=== PATIENT | female | born 1960 | race Hispanic/Latino ===

== ENCOUNTER 2018-12-10 09:58 | Emergency (ER) | payer BC ==
[~2018-12-10] VITALS: Ht 165.1 cm; Wt 90.7 kg
--- OUTSIDE RECORDS SUMMARY | 2018-12-10 10:01 | XMS REPORT | Summary of Care ---
Author Author [facility] Organization [facility] Address Unknown Phone Unavailable Encounter HQ Brad(FIN) [id number] Date(s): 09/22/17 - 09/22/17 [facility] [address] [place] [address]- Encounter Diagnosis Epigastric pain (Final) - 09/26/17 Calculus of gallbladder without cholecystitis without obstruction (Final) - Other specified diseases of biliary tract (Final) - Acquired absence of other specified parts of digestive tract (Final) - Discharge Disposition: Home or Self Care Attending Physician: Chitra Wang MD Referring Physician: Chitra Wang MD Vital Signs No data available for this section Problem List Condition Effective Dates Status Health Status Informant DM (diabetes Resolved mellitus)(Confirmed) HTN Resolved (hypertension)(Confi rmed) Allergies, Adverse Reactions, Alerts Substance Reaction Severity Status codeine Active Medications No data available for this section Results No data available for this section Immunizations No data available for this section Procedures Procedure Date Related Diagnosis Body Site Status Cholecystectomy Completed Social History Social History Type Response Smoking Status Never smoker; Previous treatment: None; Ready to change: No; Concerns about tobacco use in household: No; Exposure to Tobacco Smoke None; Cigarette Smoking Last 365 Days No; Reg Smoking Cessation Counseling No entered on: 09/15/17 Assessment and Plan No data available for this section
--- OUTSIDE RECORDS SUMMARY | 2018-12-10 10:01 | XMS REPORT | Summary of Care ---
Author Author [facility] Organization [facility] Address Unknown Phone Unavailable Encounter HQ Marianna_delbert(FIN) [id number] Date(s): 05/18/18 - 05/18/18 [facility] [address] [place] [address]- Encounter Diagnosis Encounter for screening mammogram for malignant neoplasm of breast (Final) - 07/26/18 Discharge Disposition: Home or Self Care Attending Physician: Darren Melton MD Referring Physician: Darren Melton MD Vital Signs No data available for [...] Related Diagnosis Body Site Status Cholecystectomy Completed Magnetic resonance cholangiopancreatography Completed (MRCP) with contrast Social History Social History Type Response Smoking Status Never smoker; Previous treatment: None; Ready to change: No; Concerns about tobacco use in household: No; Exposure to Tobacco Smoke None; Cigarette Smoking Last 365 Days No; Reg Smoking Cessation Counseling No entered on: 01/12/18 Assessment and Plan No data available for this section
--- OUTSIDE RECORDS SUMMARY | 2018-12-10 10:01 | XMS REPORT | Clinical Summary ---
Author Author [facility] Address Unknown Phone Unavailable Care Team Providers Care Alterations Supervisor Name Role Phone Sharpless PCP Allergies Comments Active Allergy Reactions Severity Noted Date Delayed awakening Codeine 10/11/2016 Medications End Date Status Medication Sig Dispensed Refills Start Date Active metFORMIN (GLUCOPHAGE) Take 1,000 mg 0 1000 MG tablet by mouth 2 (two) times daily with breakfast and dinner. Active atenolol (TENORMIN) 25 MG Take 25 mg by 0 tablet mouth daily. Active Problems Not on file Social History Date Tobacco Use Types Packs/Day Years Used Never Smoker Alcohol Use Drinks/Week oz/Week Comments No Sex Assigned at Date Recorded Not on file Industry Job Start Date Occupation Not on file Not on file Not on file Travel End Travel History Travel Start No recent travel history available. Last Filed Vital Signs Not on file Plan of Treatment Not on file Results Not on fileafter 12/09/2017 Insurance Payer Benefit Subscriber ID Type Phone Address Plan / Group [facility] H[facility]/POS CARE POS SELECT CHOICE
--- OUTSIDE RECORDS SUMMARY | 2018-12-10 10:01 | XMS REPORT | Summary of Care ---
Author Author [facility] Organization [facility] Address Unknown Phone Unavailable Encounter HQ Marianna_delbert(AAYUSH) [id number] Date(s): 03/08/17 - 03/08/17 [facility] [address] [place] [address]- Discharge Disposition: Home or Self Care Attending Physician: Darren Melton MD Referring Physician: Darren Melton MD Vital Signs No data available for this section Problem List Condition Effective Dates Status Health Status Informant DM (diabetes Resolved mellitus)(Confirmed) HTN Resolved (hypertension)(Confi rmed) Allergies, Adverse Reactions, Alerts Substance Reaction Severity Status NKDA Active Medications No data available for this section Results No data available for this section Immunizations No data available for this section Procedures Procedure Date Related Diagnosis Body Site Cholecystectomy Social History Social History Type Response Smoking Status Never smoker; Previous treatment: None; Ready to change: No; Concerns about tobacco use in household: No; Exposure to Tobacco Smoke None; Cigarette Smoking Last 365 Days No; Reg Smoking Cessation Counseling No Assessment and Plan No data available for this section
--- OUTSIDE RECORDS SUMMARY | 2018-12-10 10:01 | XMS REPORT | Summary of Care ---
Author Author [facility] Organization [facility] Address Unknown Phone Unavailable Encounter GWEN Salinas(AAYUSH) [id number] Date(s): 10/08/16 - 10/09/16 [facility] [address] [place] [address]- [phone] Discharge Diagnosis: Acute cystitis with positive culture Discharge Disposition: Home or Self Care Attending Physician: Owen Deleon MD Vital Signs 1 2 3 Most recent to oldest [Reference Range]: 165.1 cm (10/09/16 12:14 AM) Height 98 DegF (10/09/16 5:09 AM) 98.2 DegF (10/09/16 3:53 AM) 98 DegF (10/09/16 1:19 AM) Temperature Oral [96.4-99.1 DegF] 131/52 mmHg (10/09/16 5:09 AM) 136/61 mmHg (10/09/16 3:53 AM) 125/68 mmHg (10/09/16 1:19 AM) Blood Pressure [90-140/60-90 mmHg] 18 BRMIN (10/09/16 5:09 AM) 18 BRMIN (10/09/16 3:53 AM) 18 BRMIN (10/09/16 1:19 AM) Respiratory Rate [14-20 BRMIN] 63 bpm (10/09/16 5:09 AM) 60 bpm (10/09/16 3:53 AM) 65 bpm (10/09/16 1:19 AM) Peripheral Pulse Rate [60-100 bpm] 100 kg (10/09/16 12:14 AM) Weight 36.69 m2 (10/09/16 12:14 AM) Body Mass Index Problem List Condition Effective Dates Status Health Status Informant DM (diabetes Resolved mellitus)(Confirmed) HTN Resolved (hypertension)(Confi rmed) Allergies, Adverse Reactions, Alerts Substance Reaction Severity Status NKDA Active Medications Saline Flush 0.9% 10 mL, Route: IVP, Drug Form: INJ, Dosing Weight 100, kg, PRN, PRN Line Flush, S tart date: 10/09/16 1:18:00 [employer], Duration: 30 day, Stop date: 11/08/16 2:17:00 C DT Notes: (Same as: BD Posiflush) Start Date: 10/09/16 Stop Date: 10/09/16 Status: Discontinued Sodium Chloride 0.9% (Bolus) IV 1,000 mL, 2,000 ml/hr, Infuse Over: 30 minutes, Route: IV, ONCE, Priority: STAT, Dosing Weight 100 kg, Start date: 10/09/16 1:18:00 [employer], Duration: 1 doses or ti mes, Stop date: 10/09/16 1:18:00 [employer] Start Date: 10/09/16 Stop Date: 10/09/16 Status: Completed Zofran 4 mg, Route: IVP, Drug form: INJ, ONCE, Dosing Weight 100, kg, Priority: STAT, S tart date: 10/09/16 3:46:00 [employer], Stop date: 10/09/16 3:46:00 [employer] Start Date: 10/09/16 Stop Date: 10/09/16 Status: Completed Results ELECTROLYTES Most recent to 1 oldest [Reference Range]: Sodium Lvl [135-145 137 mEq/L mEq/L] (10/09/16 1:44 AM) Potassium Lvl 3.3 mEq/L [3.5-5.1 mEq/L] *LOW* (10/09/16 1:44 AM) Chloride Lvl [95-109 95 mEq/L mEq/L] (10/09/16 1:44 AM) CO2 [24-32 mEq/L] 31 mEq/L (10/09/16 1:44 AM) AGAP [10.0-20.0 14.3 mEq/L mEq/L] (10/09/16 1:44 AM) CHEM PANEL Most recent to 1 oldest [Reference Range]: Creatinine Lvl 1.10 mg/dL [0.50-1.40 mg/dL] (10/09/16 1:44 AM) eGFR 56 mL/min/1.73m2 1 *NA* (10/09/16 1:44 AM) BUN [7-22 mg/dL] 11 mg/dL (10/09/16 1:44 AM) Glucose Lvl [70-99 179 mg/dL mg/dL] *HI* (10/09/16 1:44 AM) Calcium Lvl 8.9 mg/dL [8.5-10.5 mg/dL] (10/09/16 1:44 AM) Amylase Lvl [25-115 16 unit/L unit/L] *LOW* (10/09/16 1:44 AM) Lipase Lvl [73-393 49 unit/L unit/L] *LOW* (10/09/16 1:44 AM) 1Result Comment: The eGFR is calculated using the CKD-EPI formula. In most young, healthy individuals the eGFR will be >90 mL/min/1.73m2. The eGFR declines with age. An eGFR of 60-89 may be normal in some populations, particularly the elderly, for whom the CKD-EPI formula has not been extensively validated. Use of the eGFR is not recommended in the following populations: Individuals with unstable creatinine concentrations, including patients and those with serious co-morbid conditions. Patients with extremes in muscle mass or diet. The data above are obtained from the National Kidney Disease Education Program ( NKDEP) which additionally recommends that when the eGFR is used in patients with extremes of body mass index for purposes of drug dosing, the eGFR should be mul tiplied by the estimated BMI. URINE AND STOOL Most recent to 1 oldest [Reference Range]: UA Turbidity [Clear] Slight *ABN* (10/09/16 1:44 AM) UA Color [Yellow] Yellow *NA* (10/09/16 1:44 AM) UA pH [5.0-8.0] 5.0 (10/09/16 1:44 AM) UA Spec Grav 1.018 [<=1.030] (10/09/16 1:44 AM) UA Glucose [Negative 500 mg/dL mg/dL] *ABN* (10/09/16 1:44 AM) UA Blood [Negative] Negative (10/09/16 1:44 AM) UA Ketones [Negative Negative mg/dL mg/dL] *NA* (10/09/16 1:44 AM) UA Protein [Negative Negative mg/dL mg/dL] (10/09/16 1:44 AM) UA Urobilinogen <=1.0 mg/dL [0.1-1.0 mg/dL] *NA* (10/09/16 1:44 AM) UA Bili [Negative] Negative *NA* (10/09/16 1:44 AM) UA Leuk Est Negative [Negative] (10/09/16 1:44 AM) UA Nitrite Negative [Negative] (10/09/16 1:44 AM) UA WBC [0-5 /HPF] 8 /HPF *HI* (10/09/16 1:44 AM) UA RBC [0-2 /HPF] <1 /HPF (10/09/16 1:44 AM) UA Bacteria [None Occasional /HPF Seen /HPF] *NA* (10/09/16 1:44 AM) UA Sq Epi [Few /LPF] Occasional /LPF *NA* (10/09/16 1:44 AM) UA Hyal Cast [0-2 9 /LPF /LPF] *HI* (10/09/16 1:44 AM) UA Mucus [None Seen Few /LPF /LPF] *NA* (10/09/16 1:44 AM) HEMATOLOGY Most recent to 1 oldest [Reference Range]: WBC [3.7-10.4 K/CMM] 9.4 K/CMM (10/09/16 1:44 AM) RBC [4.20-5.40 4.04 M/CMM M/CMM] *LOW* (10/09/16 1:44 AM) Hgb [12.0-16.0 g/dL] 11.8 g/dL *LOW* (10/09/16 1:44 AM) Hct [36.0-48.0 %] 34.8 % *LOW* (10/09/16 1:44 AM) MCV [80.0-98.0 fL] 86.1 fL (10/09/16 1:44 AM) MCH [27.0-31.0 pg] 29.2 pg (10/09/16 1:44 AM) MCHC [32.0-36.0 33.9 g/dL g/dL] (10/09/16 1:44 AM) RDW [11.5-14.5 %] 14.3 % (10/09/16 1:44 AM) Platelet [133-450 356 K/CMM K/CMM] (10/09/16 1:44 AM) MPV [7.4-10.4 fL] 8.9 fL (10/09/16 1:44 AM) Segs [45.0-75.0 %] 62.0 % (10/09/16 1:44 AM) Lymphocytes 29.3 % [20.0-40.0 %] (10/09/16 1:44 AM) Monocytes [2.0-12.0 7.5 % %] (10/09/16 1:44 AM) Eosinophils [0.0-4.0 0.8 % %] (10/09/16 1:44 AM) Basophils [0.0-1.0 0.4 % %] (10/09/16 1:44 AM) Segs-Bands # 5.8 K/CMM [1.5-8.1 K/CMM] (10/09/16 1:44 AM) Lymphocytes # 2.8 K/CMM [1.0-5.5 K/CMM] (10/09/16 1:44 AM) Monocytes # [0.0-0.8 0.7 K/CMM K/CMM] (10/09/16 1:44 AM) Eosinophils # 0.1 K/CMM [0.0-0.5 K/CMM] (10/09/16 1:44 AM) Immunizations No data available for this section [...]
--- OUTSIDE RECORDS SUMMARY | 2018-12-10 10:01 | XMS REPORT | Continuity of Care Document ---
Author Author [facility] Interface Address Unknown Phone Unavailable Problems Problem Status Onset Date Classification Date Reported Comments Source L UPPER BACK NECK PAIN Active 09/12/2018 [facility] Encounter for screening mammogram for malignant neoplasm of breast 07/27/2018 12/05/2018 [facility] ROUTINE Active 05/03/2018 [facility] Acute UTI 01/12/2018 01/15/2018 [facility] Epigastric abdominal pain 01/12/2018 01/15/2018 [facility] ABD, HEAD, NECK PAIN Active 01/12/2018 [facility] Epigastric pain 09/27/2017 12/29/2017 [facility] DX: K80.20=CALCULUS OF GALLBLADDER WITHO Active 09/20/2017 [facility] DIABETIC KETOACIDOSIS, JULIO CESAR Active 09/15/2017 [facility] ABD PAIN Active 09/15/2017 [facility] SCREENING NO PAIN,NO LUMPS,NO IMPLANT Active 02/10/2017 [facility] Discharge Diagnosis: Acute cystitis with positive culture 10/09/2016 10/12/2016 [facility] VAGINAL BLEEDING Active 10/08/2016 [facility] Discharge Diagnosis: Right ovarian cyst 10/02/2016 10/05/2016 [facility] Discharge Diagnosis: Elevated blood pressure 10/02/2016 10/05/2016 [facility] Discharge Diagnosis: Abdominal pain, acute, right lower quadrant 10/02/2016 10/05/2016 [facility] Discharge Diagnosis: Renovascular hypertension 10/02/2016 10/05/2016 [facility] Discharge Diagnosis: Acute pyelonephritis 10/02/2016 10/05/2016 [facility] SIDE PAIN Active 10/02/2016 [facility] DM (<span [id number]</span>) Resolved Problem 12/05/2018 [facility] HTN (<span [id number]">Confirmed</span>) Resolved Problem 12/05/2018 [facility] Calculus of gallbladder without cholecystitis without obstruction 12/29/2017 [facility] Other specified diseases of biliary tract 12/29/2017 [facility] Acquired absence of other specified parts of digestive tract 12/29/2017 [facility] OTH DIABETES MELLITUS WITH KETOACIDOSIS Active [facility] ACUTE KIDNEY FAILURE, UNSPECIFIED Active [facility] Medications Medication Details Route Status Patient Instructions Ordering Provider Order Date Source Nitrofurantoin 100 MG Oral Capsule [Macrobid] 100 mg=1 cap, PO, BID, X 7 day, # 14 cap, 0 Refill(s) Active 01/13/2018 [facility] Esomeprazole 20 MG Enteric Coated Capsule [Nexium] 20 mg=1 cap, PO, Daily, # 30 cap, 0 Refill(s) Active 01/13/2018 [facility] Sodium Chloride 0.9% (Bolus) IV 1,000 mL, 1000 ml/hr, Infuse Over: 1 hr, Route: IV, 1,000, Drug form: INJ, ONCE, Priority: STAT, Dosing Weight 98.182 kg, Start date: 01/12/18 19:02:00 CDT, Stop date: 01/12/18 19:02:00 CDT Inactive 01/13/2018 [facility] GI cocktail 30 mL, Route: PO, Drug Form: SUSP, Dosing Weight 98.182, kg, ONCE, STAT, Start date: 01/12/18 19:02:00 CDT, Stop date: 01/12/18 19:02:00 CDTNotes: G.I. Cocktail=antacid with simethicone 22.5 mL - lidocaine viscous 7.5 mL Inactive 01/13/2018 [facility] Acetaminophen 325 MG / Hydrocodone Bitartrate 5 MG Oral Tablet 1 tab, Route: PO, Drug Form: TAB, Dosing Weight 98.182, kg, ONCE, STAT, Start date: 01/12/18 19:02:00 CDT, Stop date: 01/12/18 19:02:00 CDTNotes: (Same as: Eldon 325/5) Do not exceed 4gm/day of acetaminophen. Inactive 01/13/2018 [facility] Zofran 4 mg, Route: IVP, Drug form: INJ, ONCE, Dosing Weight 100, kg, Priority: STAT, Start date: 10/09/16 3:46:00 PARAGLIDING INSTRUCTOR, Stop date: 10/09/16 3:46:00 PARAGLIDING INSTRUCTOR Inactive 10/09/2016 [facility] Sodium Chloride 0.154 MEQ/ML Injectable Solution 1,000 mL, 2,000 ml/hr, Infuse Over: 30 minutes, Route: IV, ONCE, Priority: STAT, Dosing Weight 100 kg, Start date: 10/09/16 1:18:00 PARAGLIDING INSTRUCTOR, Duration: 1 doses or times, Stop date: 10/09/16 1:18:00 PARAGLIDING INSTRUCTOR Inactive 10/09/2016 [facility] Saline Flush 0.9% 10 mL, Route: IVP, Drug Form: INJ, Dosing Weight 100, kg, PRN, PRN Line Flush, Start date: 10/09/16 1:18:00 PARAGLIDING INSTRUCTOR, Duration: 30 day, Stop date: 11/08/16 2:17:00 CDTNotes: (Same as: BD Posiflush) Inactive 10/09/2016 [facility] Cephalexin 500 MG Oral Capsule [Keflex] 500 mg=1 cap, PO, TID, X 10 day, # 30 cap, 0 Refill(s) Active 10/02/2016 [facility] Ondansetron 8 MG Disintegrating Tablet [Zofran] 8 mg=1 tab, PO, TID, PRN Nausea and Vomiting, Dissolve tab under tongue, X 4 day, # 30 tab, 0 Refill(s) Active 10/02/2016 [facility] Zofran 4 mg, 2 mL, Route: IVP, Drug form: INJ, ONCE, Dosing Weight 102.273, kg, Priority: STAT, Start date: 10/02/16 6:59:00 PARAGLIDING INSTRUCTOR, Stop date: 10/02/16 6:59:00 CSTNotes: (Same as: Zofran) MEDICATION WASTE Product Size: 4 mg Product Wasted: ___ mg Inactive 10/02/2016 [facility] Morphine 4 mg, 1 mL, Route: IV, Drug form: SOLN, ONCE, Dosing Weight 102.273, kg, Priority: STAT, Start date: 10/02/16 6:59:00 PARAGLIDING INSTRUCTOR, Stop date: 10/02/16 6:59:00 CSTNotes: (Same as:MORPhine Sulfate) Inactive 10/02/2016 [facility] Rocephin 1 gm, Route: IVPB, ONCE, Dosing Weight 102.273, kg, Priority: STAT, Start date: 10/02/16 6:42:00 PARAGLIDING INSTRUCTOR, Stop date: 10/02/16 6:42:00 CSTNotes: (Same As: Rocephin). Use with 100 mL NS and infuse over 30 mi n MEDICATION WASTE Product Size: 1000 mg Product Wasted: ___ mg Inactive 10/02/2016 [facility] sodium chloride 0.9% INJ 250 mL 250 mL, Rate: [employer] Appellate [employer] Clerk for use with blood product administration., Dosing Weight 102.273, kg, Route: IV, Total Volume: 250, Priority: Routine, Start Date: 10/02/16 4:02:00 PARAGLIDING INSTRUCTOR, Duration: 1 day, Stop date: 10/03/16 4:01:00 PARAGLIDING INSTRUCTOR, Replace Every: 24 hr Inactive 10/02/2016 [facility] Morphine 8 mg, Route: IVP, ONCE, Dosing Weight 102.273, kg, Priority: STAT, Start date: 10/02/16 4:02:00 PARAGLIDING INSTRUCTOR, Stop date: 10/02/16 4:02:00 PARAGLIDING INSTRUCTOR Inactive 10/02/2016 [facility] Ondansetron 4 mg, Route: IVP, ONCE, Dosing Weight 102.273, kg, Priority: STAT, Start date: 10/02/16 4:02:00 PARAGLIDING INSTRUCTOR, Stop date: 10/02/16 4:02:00 PARAGLIDING INSTRUCTOR Inactive 10/02/2016 [facility] Sodium Chloride 0.154 MEQ/ML Injectable Solution 1,000 mL, Rate: 125 ml/hr, Infuse over: 8 hr, Route: IV, Dosing Weight 102.273 kg, Total Volume: 1,000, Start date: 10/02/16 4:02:00 PARAGLIDING INSTRUCTOR, Duration: 30 day, Stop date: 11/01/16 4:01:00 PARAGLIDING INSTRUCTOR Inactive 10/02/2016 [facility] Saline Flush 0.9% 10 mL, Route: IVP, Drug Form: INJ, Dosing Weight 102.273, kg, PRN, PRN Line Flush, Start date: 10/02/16 4:02:00 PARAGLIDING INSTRUCTOR, Duration: 30 day, Stop date: 11/01/16 4:01:00 CSTNotes: (Same as: BD Posiflush) Inactive 10/02/2016 [facility] Allergies, Adverse Reactions, Alerts Substance Category Reaction Severity Reaction type Status Date Reported Comments Source codeine Assertion Drug allergy Active [facility] Immunizations Immunization Date Given Site Status Last Updated Comments Source Results Order Name Results Value Reference Range Date Interpretation Comments Source Spine cervical 2 or 3 view DX Spine cervical 2 or 3 view DX Cervical spine 4 views 09/12/2018 HISTORY: Neck pain FINDINGS: There is straightening of the cervical spine. Vertebral body heights are maintained. Disc space narrowing and osteophytes are present at C5-C6. Transforaminal view of the dens is within normal limits. Alignment is preserved. No prevertebral soft tissue swelling is noted. Carotid calcifications are present. IMPRESSION: 1. No fracture, malalignment, or soft tissue swelling. 2. Moderate degenerative disc disease at C5-C6. 3. Straightening of cervical spine which may be related to patient positioning or muscle spasm. SL: KRISHAN 09/12/2018 - - Read by: Pollo Jones MD Dictated Date/time: 09/12/18 21:41 Electronically Signed by: Pollo Jones MD 09/12/18 21:43 FINAL REPORT [facility] Breast Mammo Scrn MARY w juan incl CAD MA Breast Mammo Scrn MARY w juan incl CAD MA BILATERAL DIGITAL SCREENING MAMMOGRAM 3D/2D WITH CAD: 05/18/2018 CLINICAL: /Routine. Current study was evaluated with a Computer Aided Detection (CAD) system. COMPARISON:Comparison is made to exams dated: 03/08/2017 mammogram - [facility], 05/13/2016 mammogram, 03/27/2015 mammogram, 05/04/2012 mammogram, 04/24/2008 mammogram, and 10/22/2005 mammogram - [facility]. TECHNIQUE: Digital Breast Tomosynthesis was performed and utilized for Interpretation. [employer] Version 1.3 was utilized for computer aided detection. FINDINGS: There are scattered fibroglandular densities in both breasts. There is a benign nodule in the left breast. There also are benign calcifications in both breasts. No significant masses, calcifications, or other findings are seen in either breast. There has been no significant interval change. IMPRESSION: BENIGN RECOMMENDATION:There is no mammographic evidence of malignancy. A 1 year screening mammogram is recommended.(05/19/2019) This exam was interpreted at [id number] for [facility] Breast [facility]. Silvano cho/mj:05/18/2018 11:08:37 Chemical Production Engineer(s): Jovita Buck [facility] letter sent: BI-RADS 1/2 Mammogram BI-RADS: 2 Benign 05/18/2018 - - Read by: Silvano Hussein MD Dictated Date/time: 05/18/18 11:08 Electronically Signed by: Silvano Hussein MD 05/18/18 11:08 FINAL REPORT [facility] URINE AND STOOL UA RBC 0-2 /HPF 0 - 2 01/12/2018 [facility] URINE AND STOOL UA Bacteria Few /HPF None Seen /HPF 01/12/2018 [facility] URINE AND STOOL UA WBC 6-10 /HPF 0 - 5 01/12/2018 [facility] URINE AND STOOL UA Blood Small *ABN* (01/12/18 5:36 PM) Negative 01/12/2018 [facility] URINE AND STOOL UA Urobilinogen 0.2 EU/dL 0.1 - 1.0 01/12/2018 [facility] URINE AND STOOL UA Protein 30 mg/dL Negative mg/dL 01/12/2018 [facility] URINE AND STOOL UA pH 5.5 5.0 - 8.0 01/12/2018 [facility] URINE AND STOOL UA Glucose Negative (01/12/18 5:36 PM) Negative 01/12/2018 [facility] URINE AND STOOL UA Ketones Negative *NA* (01/12/18 5:36 PM) Negative 01/12/2018 [facility] URINE AND STOOL UA Nitrite Negative (01/12/18 5:36 PM) Negative 01/12/2018 [facility] URINE AND STOOL UA Leuk Est Moderate *ABN* (01/12/18 5:36 PM) Negative 01/12/2018 [facility] URINE AND STOOL UA Sq Epi Moderate /LPF Few /LPF 01/12/2018 [facility] URINE AND STOOL UA Turbidity Slight Cloudy (01/12/18 5:36 PM) Clear 01/12/2018 [facility] URINE AND STOOL UA Spec Grav >=1.030 *ABN* (01/12/18 5:36 PM) <=1.030 01/12/2018 [facility] URINE AND STOOL UA Bili Negative *NA* (01/12/18 5:36 PM) Negative 01/12/2018 [facility] URINE AND STOOL UA Color Yellow *NA* (01/12/18 5:36 PM) Yellow 01/12/2018 [facility] URINE CHEM U Preg Negative (01/12/18 5:36 PM) Negative 01/12/2018 [facility] CARDIAC ENZYMES Troponin-I null 0.00 - 0.40 01/12/2018 [facility] CHEM PANEL Lipase Lvl 101 unit/L 73 - 393 01/12/2018 [facility] CHEM PANEL eGFR 38 mL/min/1.73m2 01/12/2018 Result Comment: The eGFR is calculated using the [...] from the National Kidney Disease Education Program (NKDEP) which additionally recommends that when the eGFR is used in patients with extremes of body mass index for purposes of drug dosing, the eGFR should be multiplied by the estimated BMI. [facility] CHEM PANEL ALT 67 unit/L 0 - 65 01/12/2018 [facility] CHEM PANEL AST 48 unit/L 0 - 37 01/12/2018 [facility] CHEM PANEL Alk Phos 101 unit/L 39 - 136 01/12/2018 [facility] CHEM PANEL Total Protein 8.0 g/dL 6.4 - 8.4 01/12/2018 [facility] CHEM PANEL Albumin Lvl 4.2 g/dL 3.5 - 5.0 01/12/2018 [facility] CHEM PANEL Calcium Lvl 9.5 mg/dL 8.5 - 10.5 01/12/2018 [facility] CHEM PANEL Bili Total 0.5 mg/dL 0.2 - 1.3 01/12/2018 [facility] CHEM PANEL Potassium Lvl 3.6 meq/L 3.5 - 5.1 01/12/2018 [facility] CHEM PANEL Sodium Lvl 144 meq/L 135 - 145 01/12/2018 [facility] CHEM PANEL BUN 23 mg/dL 7 - 22 01/12/2018 [facility] CHEM PANEL Creatinine Lvl 1.49 mg/dL 0.50 - 1.40 01/12/2018 [facility] CHEM PANEL CO2 28 meq/L 24 - 32 01/12/2018 [facility] CHEM PANEL Chloride Lvl 106 meq/L 95 - 109 01/12/2018 [facility] CHEM PANEL Glucose Lvl 116 mg/dL 70 - 99 01/12/2018 [facility] CHEM PANEL A/G Ratio 1.1 0.7 - 1.6 01/12/2018 [facility] CHEM PANEL Globulin 3.8 g/dL 2.7 - 4.2 01/12/2018 [facility] CHEM PANEL B/C Ratio 15 6 - 25 01/12/2018 [facility] CHEM PANEL AGAP 13.6 meq/L 10.0 - 20.0 01/12/2018 [facility] MPV 9.3 fL 7.4 - 10.4 01/12/2018 [facility] Platelet 356 K/CMM 133 - 450 01/12/2018 [facility] MCHC 33.9 g/dL 32.0 - 36.0 01/12/2018 [facility] RDW 13.1 % 11.5 - 14.5 01/12/2018 [facility] MCV 90.7 fL 80.0 - 98.0 01/12/2018 [facility] MCH 30.7 pg 27.0 - 31.0 01/12/2018 [facility] Hct 36.4 % 36.0 - 48.0 01/12/2018 [facility] Hgb 12.3 g/dL 12.0 - 16.0 01/12/2018 [facility] RBC 4.02 M/CMM 4.20 - 5.40 01/12/2018 [facility] WBC 9.2 K/CMM 3.7 - 10.4 01/12/2018 [facility] Lymphocytes # 2.4 K/CMM 1.0 - 5.5 01/12/2018 [facility] Segs-Bands # 6.2 K/CMM 1.5 - 8.1 01/12/2018 [facility] Eosinophils # 0.1 K/CMM 0.0 - 0.5 01/12/2018 [facility] Monocytes # 0.5 K/CMM 0.0 - 0.8 01/12/2018 [facility] HEMATOLOGY Segs 67.2 % 45.0 - 75.0 01/12/2018 [facility] HEMATOLOGY Basophils 0.3 % 0.0 - 1.0 01/12/2018 [facility] HEMATOLOGY Eosinophils 1.1 % 0.0 - 4.0 01/12/2018 [facility] Monocytes 5.6 % 2.0 - 12.0 01/12/2018 [facility] Lymphocytes 25.8 % 20.0 - 40.0 01/12/2018 [facility] Abdomen wo contrast MRI Abdomen wo contrast MRI MRCP: HISTORY: Epigastric pain, history of cholecystectomy. TECHNIQUE: Axial and coronal T2 tomographic images were done through the biliary tree followed by thick slab MRCP images. FINDINGS: The gallbladder is not visualized consistent with cholecystectomy. There is a short cystic duct remnant measuring 3-4 mm in diameter. There is mild ectasia of the biliary tree. The common hepatic duct measures 7 mm in diameter. The common bile duct measures 6 mm in diameter. No strictures or filling defects are demonstrated. The pancreatic duct is normal caliber measuring 2-3 mm in diameter. There is no evidence of bleeding or strictures. There are no significant anatomical variants. The liver, spleen, pancreas, kidneys and adrenal glands show no significant abnormalities. IMPRESSION: 1. Post cholecystectomy. 2. No significant biliary dilatation or choledocholithiasis. 3. Normal pancreatic duct. DLAWRENCE- 09/22/2017 - - Read by: Mariano Gutiérrez MD Dictated Date/time: 09/23/17 11:04 Electronically Signed by: Mariano Gutiérrez MD 09/23/17 11:11 FINAL REPORT [facility] Abdomen complete US Abdomen complete US Exam: Abdomen complete US Clinical Indication: - Epigastric pain. Comparison: CT abdomen and pelvis 10/09/2016. TECHNIQUE: Grayscale and limited color sonographic evaluation of the abdomen was performed with standard technique. FINDINGS: LIVER: The visualized liver shows normal contour. There is normal liver size, based on sonography. Diffuse heterogeneous increased echotexture of the liver parenchyma with posterior acoustic attenuation is consistent with fatty infiltration. The portal vein region appears unremarkable. BILE DUCTS: The common bile duct is mildly prominent measuring 8 mm most likely related to cholecystectomy status. The distal common bile duct is not well seen. GALLBLADDER: The gallbladder is surgically absent. PANCREAS: The visualized pancreas appears unremarkable. SPLEEN: The spleen is unremarkable and measures 9.9 cm. KIDNEYS: The right kidney measures 12.7 cm. The left kidney measures 13.1 cm. There is normal renal contour and morphology, with normal parenchymal echotexture. Anechoic cyst is present in the superior pole of the left kidney measuring 1.1 x 1.1 x 1.3 cm. There is no hydronephrosis. AORTA AND INFERIOR VENA CAVA: The visualized abdominal aorta and inferior vena cava appear unremarkable. ASCITES: There is no significant abdominal ascites. IMPRESSION: 1. Mild prominence of the common bile duct is most likely related to cholecystectomy status. Suggest clinical correlation for biliary obstruction. If there is further clinical concern, may consider evaluation with MRCP and/or ERCP. 2. Hepatic steatosis. 3. Left renal cyst. SL: [id number] 09/15/2017 - - Read by: Xavier Dodson MD Dictated Date/time: 09/15/17 17:50 Electronically Signed by: Xavier Dodson MD 09/15/17 17:54 FINAL REPORT [facility] Chest 1view DX Chest 1view DX Clinical Indication: Cough for 2 weeks; Comparison: None FINDINGS: AP chest radiographs shows normal lung volumes without interstitial or airspace opacities, pleural effusions or pneumothorax. The heart size and pulmonary vasculature are normal. The trachea is midline. There are no clinically significant osseous abnormalities noted. IMPRESSION: No chest radiographic evidence of acute cardiopulmonary disease. SL: [id number] 09/15/2017 - - Read by: Cornelio Sanches MD Dictated Date/time: 09/15/17 08:11 Electronically Signed by: Cornelio Sanches MD 09/15/17 08:11 FINAL REPORT [facility] Breast Mammo Scrn MARY w juan incl CAD MA Breast Mammo Scrn MARY w juan incl CAD MA - BREAST MAMMO SCRN MARY W JUAN INCL CAD MA BILATERAL DIGITAL SCREENING MAMMOGRAM 3D/2D WITH CAD: 03/08/2017 CLINICAL: /Routine. 2D digital mammographic images and 3D digital tomosynthesis images were obtained in the CC and MLO projections. Current study was evaluated with a Computer Aided Detection (CAD) system. Comparison is made to exams dated: 05/04/2012 mammogram, 04/24/2008 mammogram, 10/22/2005 mammogram - [facility], 05/13/2016 mammogram and 03/27/2015 mammogram. There are scattered fibroglandular densities in both breasts. There is a benign calcification in the right breast. There also are benign calcifications in the left breast. Additionally there is a benign nodule with coarse calcifications in the left breast at 9 o'clock in the anterior depth that is not significantly changed. No significant masses, calcifications, or other findings are seen in either breast. There has been no significant interval change. IMPRESSION: BENIGN There is no mammographic evidence of malignancy. A 1 year screening mammogram is recommended. Silvano cho/penrad:03/24/2017 08:45:44 Chemical Production Engineer: Jovita Buck, [facility] This exam was dictated and interpreted by [id number] for [facility]. letter sent: Normal exam Mammogram BI-RADS: 2 Benign 03/08/2017 - - Read by: Silvano Hussein MD Dictated Date/time: 03/24/17 08:45 Electronically Signed by: Silvano Hussein MD 03/24/17 08:45 FINAL REPORT [facility] CHEM PANEL Lipase Lvl 49 unit/L 73 - 393 10/09/2016 [facility] CHEM PANEL Amylase Lvl 16 unit/L 25 - 115 10/09/2016 [facility] ELECTROLYTES AGAP 14.3 meq/L 10.0 - 20.0 10/09/2016 [facility] ELECTROLYTES Glucose Lvl 179 mg/dL 70 - 99 10/09/2016 [facility] ELECTROLYTES BUN 11 mg/dL 7 - 22 10/09/2016 [facility] ELECTROLYTES Creatinine Lvl 1.10 mg/dL 0.50 - 1.40 10/09/2016 [facility] ELECTROLYTES Sodium Lvl 137 meq/L 135 - 145 10/09/2016 [facility] ELECTROLYTES Potassium Lvl 3.3 meq/L 3.5 - 5.1 10/09/2016 [facility] ELECTROLYTES Chloride Lvl 95 meq/L 95 - 109 10/09/2016 [facility] ELECTROLYTES Calcium Lvl 8.9 mg/dL 8.5 - 10.5 10/09/2016 [facility] ELECTROLYTES CO2 31 meq/L 24 - 32 10/09/2016 [facility] ELECTROLYTES eGFR 56 mL/min/1.73m2 10/09/2016 Result Comment: The eGFR is calculated using the [...] from the National Kidney Disease Education Program (NKDEP) which additionally recommends that when the eGFR is used in patients with extremes of body mass index for purposes of drug dosing, the eGFR should be multiplied by the estimated BMI. [facility] HEMATOLOGY Monocytes # 0.7 K/CMM 0.0 - 0.8 10/09/2016 [facility] HEMATOLOGY Eosinophils # 0.1 K/CMM 0.0 - 0.5 10/09/2016 [facility] Lymphocytes 29.3 % 20.0 - 40.0 10/09/2016 [facility] HEMATOLOGY Segs 62.0 % 45.0 - 75.0 10/09/2016 [facility] HEMATOLOGY Eosinophils 0.8 % 0.0 - 4.0 10/09/2016 [facility] HEMATOLOGY Monocytes 7.5 % 2.0 - 12.0 10/09/2016 [facility] HEMATOLOGY Basophils 0.4 % 0.0 - 1.0 10/09/2016 [facility] Lymphocytes # 2.8 K/CMM 1.0 - 5.5 10/09/2016 [facility] Segs-Bands # 5.8 K/CMM 1.5 - 8.1 10/09/2016 [facility] RBC 4.04 M/CMM 4.20 - 5.40 10/09/2016 [facility] Hct 34.8 % 36.0 - 48.0 10/09/2016 [facility] Hgb 11.8 g/dL 12.0 - 16.0 10/09/2016 [facility] MCV 86.1 fL 80.0 - 98.0 10/09/2016 [facility] MCHC 33.9 g/dL 32.0 - 36.0 10/09/2016 [facility] MCH 29.2 pg 27.0 - 31.0 10/09/2016 [facility] MPV 8.9 fL 7.4 - 10.4 10/09/2016 [facility] Platelet 356 K/CMM 133 - 450 10/09/2016 [facility] RDW 14.3 % 11.5 - 14.5 10/09/2016 [facility] WBC 9.4 K/CMM 3.7 - 10.4 10/09/2016 [facility] URINE AND STOOL UA Mucus Few /LPF None Seen /LPF 10/09/2016 [facility] URINE AND STOOL UA RBC null 0 - 2 10/09/2016 [facility] URINE AND STOOL UA WBC 8 /HPF 0 - 5 10/09/2016 [facility] URINE AND STOOL UA Bacteria Occasional /HPF None Seen /HPF 10/09/2016 [facility] URINE AND STOOL UA Sq Epi Occasional /LPF Few /LPF 10/09/2016 [facility] URINE AND STOOL UA Leuk Est Negative (10/09/16 1:44 AM) Negative 10/09/2016 [facility] URINE AND STOOL UA Urobilinogen <=1.0 mg/dL 0.1 - 1.0 10/09/2016 [facility] URINE AND STOOL UA Hyal Cast 9 /LPF 0 - 2 10/09/2016 [facility] URINE AND STOOL UA Bili Negative *NA* (10/09/16 1:44 AM) Negative 10/09/2016 [facility] URINE AND STOOL UA Glucose 500 mg/dL Negative mg/dL 10/09/2016 [facility] URINE AND STOOL UA Ketones Negative mg/dL Negative mg/dL 10/09/2016 [facility] URINE AND STOOL UA pH 5.0 5.0 - 8.0 10/09/2016 [facility] URINE AND STOOL UA Turbidity Slight *ABN* (10/09/16 1:44 AM) Clear 10/09/2016 [facility] URINE AND STOOL UA Spec Grav 1.018 <=1.030 10/09/2016 [facility] URINE AND STOOL UA Protein Negative mg/dL Negative mg/dL 10/09/2016 [facility] URINE AND STOOL UA Color Yellow *NA* (10/09/16 1:44 AM) Yellow 10/09/2016 [facility] URINE AND STOOL UA Blood Negative (10/09/16 1:44 AM) Negative 10/09/2016 [facility] URINE AND STOOL UA Nitrite Negative (10/09/16 1:44 AM) Negative 10/09/2016 [facility] ED Abdomen/Pelvis IV contrast only CT ED Abdomen/Pelvis IV contrast only CT EXAM: CT abdomen and pelvis HISTORY: Hematuria, abdominal pain COMPARISON: CT 10/02/2016 TECHNIQUE: Axial images of the abdomen and pelvis with sagittal and coronal reformats. IV contrast given. DLP: [id number] FINDINGS: Resolving wall thickening and enhancement of the renal pelvis and ureters bilaterally. Mild-moderate renal scarring. Bladder is unremarkable. Cholecystectomy. Mild fatty change of the liver. Fatty atrophy of the pancreas. The spleen, adrenals are unremarkable. Bowel pattern is unremarkable. Normal appendix. Stable 3 cm cyst right ovary. No bulky adenopathy or free fluid. Degenerative disc disease L4-L5. IMPRESSION: 1. No acute finding. 2. Resolving urinary tract infection. 3. Stable 3 cm cyst right ovary. Nonemergent, follow-up transvaginal pelvic ultrasound can be obtained. SL: TVU-PC 10/09/2016 - - Read by: zEra Rios MD Dictated Date/time: 10/09/16 04:29 Electronically Signed by: Ezra Rios MD 10/09/16 04:36 FINAL REPORT [facility] BLOOD [facility] RESULTS Antibody Scrn Negative (10/02/16 4:18 AM) 10/02/2016 [facility] BLOOD BANK RESULTS ABO/Rh O POS 10/02/2016 [facility] CARDIAC ENZYMES Total CK 75 unit/L 12 - 191 10/02/2016 [facility] CHEM PANEL Amylase Lvl 26 unit/L 25 - 115 10/02/2016 [facility] CHEM PANEL Lipase Lvl 70 unit/L 73 - 393 10/02/2016 [facility] CHEM PANEL eGFR 65 mL/min/1.73m2 10/02/2016 Result Comment: The eGFR is calculated using the [...] from the National Kidney Disease Education Program (NKDEP) which additionally recommends that when the eGFR is used in patients with extremes of body mass index for purposes of drug dosing, the eGFR should be multiplied by the estimated BMI. [facility] CHEM PANEL Chloride Lvl 99 meq/L 95 - 109 10/02/2016 [facility] CHEM PANEL CO2 28 meq/L 24 - 32 10/02/2016 [facility] CHEM PANEL Calcium Lvl 8.8 mg/dL 8.5 - 10.5 10/02/2016 [facility] CHEM PANEL Total Protein 7.6 g/dL 6.4 - 8.4 10/02/2016 [facility] CHEM PANEL Albumin Lvl 3.5 g/dL 3.5 - 5.0 10/02/2016 [facility] CHEM PANEL AST 14 unit/L 0 - 37 10/02/2016 [facility] CHEM PANEL ALT 40 unit/L 0 - 65 10/02/2016 [facility] CHEM PANEL Alk Phos 128 unit/L 39 - 136 10/02/2016 [facility] CHEM PANEL Bili Total 0.3 mg/dL 0.2 - 1.3 10/02/2016 [facility] CHEM PANEL Glucose Lvl 221 mg/dL 70 - 99 10/02/2016 [facility] CHEM PANEL BUN 14 mg/dL 7 - 22 10/02/2016 [facility] CHEM PANEL Creatinine Lvl 0.97 mg/dL 0.50 - 1.40 10/02/2016 [facility] CHEM PANEL Sodium Lvl 138 meq/L 135 - 145 10/02/2016 [facility] CHEM PANEL Potassium Lvl 3.4 meq/L 3.5 - 5.1 10/02/2016 [facility] CHEM PANEL AGAP 14.4 meq/L 10.0 - 20.0 10/02/2016 [facility] CHEM PANEL B/C Ratio 14 6 - 25 10/02/2016 [facility] CHEM PANEL Globulin 4.1 g/dL 2.7 - 4.2 10/02/2016 [facility] CHEM PANEL A/G Ratio 0.9 0.7 - 1.6 10/02/2016 [facility] ENDOCRINOLOGY S Preg Negative *NA* (10/02/16 4:18 AM) Negative 10/02/2016 [facility] HEMATOLOGY Basophils # 0.1 K/CMM 0.0 - 0.2 10/02/2016 [facility] HEMATOLOGY Monocytes # 1.0 K/CMM 0.0 - 0.8 10/02/2016 [facility] HEMATOLOGY Monocytes 6.9 % 2.0 - 12.0 10/02/2016 [facility] HEMATOLOGY Lymphocytes 19.6 % 20.0 - 40.0 10/02/2016 [facility] HEMATOLOGY Segs 72.4 % 45.0 - 75.0 10/02/2016 [facility] HEMATOLOGY Segs-Bands # 10.1 K/CMM 1.5 - 8.1 10/02/2016 [facility] HEMATOLOGY Basophils 0.9 % 0.0 - 1.0 10/02/2016 [facility] HEMATOLOGY Eosinophils 0.2 % 0.0 - 4.0 10/02/2016 [facility] HEMATOLOGY Lymphocytes # 2.7 K/CMM 1.0 - 5.5 10/02/2016 [facility] HEMATOLOGY PT 12.9 s 12.0 - 14.7 10/02/2016 [facility] HEMATOLOGY INR 0.95 0.85 - 1.17 10/02/2016 [facility] HEMATOLOGY RDW 14.0 % 11.5 - 14.5 10/02/2016 [facility] HEMATOLOGY MCHC 33.5 g/dL 32.0 - 36.0 10/02/2016 [facility] HEMATOLOGY MCH 28.6 pg 27.0 - 31.0 10/02/2016 [facility] HEMATOLOGY MCV 85.5 fL 80.0 - 98.0 10/02/2016 [facility] HEMATOLOGY MPV 9.7 fL 7.4 - 10.4 10/02/2016 [facility] HEMATOLOGY Platelet 373 K/CMM 133 - 450 10/02/2016 [facility] HEMATOLOGY Hct 33.2 % 36.0 - 48.0 10/02/2016 [facility] HEMATOLOGY Hgb 11.1 g/dL 12.0 - 16.0 10/02/2016 [facility] HEMATOLOGY RBC 3.88 M/CMM 4.20 - 5.40 10/02/2016 [facility] HEMATOLOGY WBC 13.9 K/CMM 3.7 - 10.4 10/02/2016 [facility] URINE AND STOOL UA Urobilinogen <=1.0 mg/dL 0.1 - 1.0 10/02/2016 [facility] URINE AND STOOL UA Color Ltyellow 10/02/2016 [facility] URINE AND STOOL UA WBC 78 /HPF 0 - 5 10/02/2016 [facility] URINE AND STOOL UA pH 6.0 5.0 - 8.0 10/02/2016 [facility] URINE AND STOOL UA Glucose 500 mg/dL Negative mg/dL 10/02/2016 [facility] URINE AND STOOL UA Protein 100 mg/dL Negative mg/dL 10/02/2016 [facility] URINE AND STOOL UA Ketones Trace mg/dL Negative mg/dL 10/02/2016 [facility] URINE AND STOOL UA Bili Negative *NA* (10/02/16 4:18 AM) Negative 10/02/2016 [facility] URINE AND STOOL UA Bacteria Occasional /HPF None Seen /HPF 10/02/2016 [facility] URINE AND STOOL UA RBC 9 /HPF 0 - 2 10/02/2016 [facility] URINE AND STOOL UA Blood Negative (10/02/16 4:18 AM) Negative 10/02/2016 [facility] URINE AND STOOL UA Leuk Est Trace *ABN* (10/02/16 4:18 AM) Negative 10/02/2016 [facility] URINE AND STOOL UA Nitrite Negative (10/02/16 4:18 AM) Negative 10/02/2016 [facility] URINE AND STOOL UA Sq Epi Occasional /LPF Few /LPF 10/02/2016 [facility] URINE AND STOOL UA Spec Grav 1.020 <=1.030 10/02/2016 [facility] URINE AND STOOL UA Turbidity Slight *ABN* (10/02/16 4:18 AM) Clear 10/02/2016 [facility] ED Abdomen/Pelvis IV contrast only CT ED Abdomen/Pelvis IV contrast only CT CT ABDOMEN AND PELVIS WITH CONTRAST DATED to 2016. CLINICAL INDICATION: Acute abdominal pain. Bilateral flank pain. COMPARISON: None. TECHNIQUE: A CT of the abdomen and pelvis was performed using helical images from the thoracic outlet through the pubic symphysis after the intravenous administration of 100cc Omnipaque 300. The study was ordered without bowel contrast. Sagittal and coronal reconstructions were performed. Delayed postcontrast images were obtained. CT Radiation Dose: ZVR=[id number] mGy-cm FINDINGS: SOLID ORGANS: Abnormal bilateral renal pelvic and ureteral wall thickening and enhancement is identified with associated edema/inflammation in the periureteric fat. There is no CT evidence of acute renal collecting system obstruction or calcified renal collecting system stone. The kidneys are normal in size and contour and appear to demonstrate homogeneous nephrographic enhancement. No acute CT abnormalities of the liver, spleen, pancreas or adrenal glands are identified. BILIARY: The patient is status post cholecystectomy. No significant biliary ductal dilatation is identified. BOWEL: Bowel assessment is limited by the absence of bowel contrast. There is no CT evidence of acute obstruction, appendicitis or diverticulitis. PERITONEUM: No free intraperitoneal air or significant free intraperitoneal fluid. RETROPERITONEUM: The abdominal aorta is normal in caliber. No retroperitoneal mass or adenopathy. PELVIS: An approximately 3.4 cm right ovarian cyst is identified. The left ovary/adnexa are unremarkable. The bladder appears within normal limits. LOWER CHEST: The lung bases appear clear of acute disease. ADDITIONAL COMMENTS: None. IMPRESSION: 1. Abnormal bilateral renal pelvic and ureteral wall thickening and enhancement with edema/inflammation in the periureteric fat. This finding is most compatible with acute urinary tract infection. Recent passage of bilateral renal collecting system stones is felt to be a less likely consideration. SL:131 10/02/2016 - - Read by: Reddy Bernabe MD Dictated Date/time: 10/02/16 06:31 Electronically Signed by: Reddy Bernabe MD 10/02/16 06:38 FINAL REPORT [facility] Vital Signs Vital Sign Value Date Comments Source Temperature Oral (F) 98 F 01/13/2018 [facility] Systolic (mm Hg) 137 01/13/2018 [facility] Diastolic (mm Hg) 58 01/13/2018 [facility] Respitory Rate 18 01/13/2018 [facility] Heart Rate 18 01/13/2018 [facility] Systolic (mm Hg) 116 01/13/2018 [facility] Diastolic (mm Hg) 61 01/13/2018 [facility] Respitory Rate 12 01/13/2018 [facility] Respitory Rate 17 01/12/2018 [facility] Systolic (mm Hg) 132 01/12/2018 [facility] Diastolic (mm Hg) 59 01/12/2018 [facility] Heart Rate 72 01/12/2018 [facility] Weight 98.182 01/12/2018 [facility] BMI Calculated 36.02 01/12/2018 [facility] Height 165.1 cm 01/12/2018 [facility] Temperature Oral (F) 97.9 F 01/12/2018 [facility] Heart Rate 76 01/12/2018 [facility] Systolic (mm Hg) 131 10/09/2016 [facility] Diastolic (mm Hg) 52 10/09/2016 [facility] Temperature Oral (F) 98 F 10/09/2016 [facility] Respitory Rate 18 10/09/2016 [facility] Heart Rate 63 10/09/2016 [facility] Heart Rate 60 10/09/2016 [facility] Systolic (mm Hg) 136 10/09/2016 [facility] Diastolic (mm Hg) 61 10/09/2016 [facility] Respitory Rate 18 10/09/2016 [facility] Temperature Oral (F) 98.2 F 10/09/2016 [facility] Respitory Rate 18 10/09/2016 [facility] Systolic (mm Hg) 125 10/09/2016 [facility] Diastolic (mm Hg) 68 10/09/2016 [facility] Temperature Oral (F) 98 F 10/09/2016 [facility] Heart Rate 65 10/09/2016 [facility] Weight 100 10/09/2016 [facility] Height 165.1 cm 10/09/2016 [facility] BMI Calculated 36.69 10/09/2016 [facility] Respitory Rate 18 10/02/2016 [facility] Systolic (mm Hg) 134 10/02/2016 [facility] Diastolic (mm Hg) 67 10/02/2016 [facility] Heart Rate 72 10/02/2016 [facility] Temperature Oral (F) 97.9 F 10/02/2016 [facility] Respitory Rate 17 10/02/2016 [facility] Heart Rate 70 10/02/2016 [facility] Systolic (mm Hg) 135 10/02/2016 [facility] Diastolic (mm Hg) 61 10/02/2016 [facility] Heart Rate 68 10/02/2016 [facility] Respitory Rate 16 10/02/2016 [facility] Systolic (mm Hg) 140 10/02/2016 [facility] Diastolic (mm Hg) 63 10/02/2016 [facility] Weight 102.273 10/02/2016 [facility] Height 165.1 cm 10/02/2016 [facility] BMI Calculated 37.52 10/02/2016 [facility] Temperature Oral (F) 98.3 F 10/02/2016 [facility] Encounters Location Location Details Encounter Type Encounter Number Reason For Visit Attending Provider ADM Date DC Date Status Source [facility] Emergency [id number] Wyatt Suhchichi 10/02/2016 10/02/2016 [facility] Emergency [id number] Fabriziotoanchioma Deleon 10/09/2016 10/09/2016 [facility] [id number] [facility] 03/08/2017 03/09/2017 [facility] Outpatient [id number] Chitra Wang 09/22/2017 09/23/2017 [facility] Emergency [id number] Robby Elliott 01/12/2018 01/13/2018 [facility] Outpatient [id number] Wigberto [place] 05/18/2018 05/19/2018 [facility] Procedures Procedure Code Date Perfomer Comments Source Cholecystectomy [id number] [facility] Magnetic resonance cholangiopancreatography (MRCP) with contrast [id number] [facility]
--- OUTSIDE RECORDS SUMMARY | 2018-12-10 10:01 | XMS REPORT | Summary of Care ---
Author Author [facility] Organization [facility] Address Unknown Phone Unavailable Encounter HQ Brad(FIN) [id number] Date(s): 01/12/18 - 01/12/18 [facility] [id number] [place] [address]- Encounter Diagnosis Acute UTI (Discharge Diagnosis) - 01/12/18 Epigastric abdominal pain (Discharge Diagnosis) - 01/12/18 Discharge Disposition: Home or Self Care Attending Physician: Robby Elliott DO Vital Signs 1 2 3 Most recent to oldest [Reference Range]: 165.1 cm (01/12/18 5:00 PM) Height 98 DegF (01/12/18 8:12 PM) 97.9 DegF (01/12/18 5:00 PM) Temperature Oral [96.4-99.1 DegF] 137/58 mmHg (01/12/18 8:12 PM) 116/61 mmHg (01/12/18 7:19 PM) 132/59 mmHg (01/12/18 6:54 PM) Blood Pressure [90-140/60-90 mmHg] 18 BRMIN (01/12/18 8:12 PM) 12 BRMIN *LOW* (01/12/18 7:19 PM) 17 BRMIN (01/12/18 6:54 PM) Respiratory Rate [14-20 BRMIN] 18 bpm *LOW* (01/12/18 7:19 PM) 72 bpm (01/12/18 6:54 PM) 76 bpm (01/12/18 5:00 PM) Peripheral Pulse Rate [60-100 bpm] 98.182 kg (01/12/18 5:00 PM) Weight 36.02 m2 (01/12/18 5:00 PM) Body Mass Index Problem List Condition Effective Dates Status Health Status Informant DM (diabetes Resolved mellitus)(Confirmed) HTN Resolved (hypertension)(Confi rmed) Allergies, Adverse Reactions, Alerts Substance Reaction Severity Status codeine Active Medications acetaminophen-hydrocodone 325 mg-5 mg oral tablet 1 tab, Route: PO, Drug Form: TAB, Dosing Weight 98.182, kg, ONCE, STAT, Start da te: 01/12/18 19:02:00 CDT, Stop date: 01/12/18 19:02:00 CDT Notes: (Same as: [place] 325/5) Do not exceed 4gm/day of acetaminophen. Start Date: 01/12/18 Stop Date: 01/12/18 Status: Completed GI cocktail 30 mL, Route: PO, Drug Form: SUSP, Dosing Weight 98.182, kg, ONCE, STAT, Start d ate: 01/12/18 19:02:00 CDT, Stop date: 01/12/18 19:02:00 CDT Notes: G.I. Cocktail=antacid with simethicone 22.5 mL - lidocaine viscous 7.5 mL Start Date: 01/12/18 Stop Date: 01/12/18 Status: Completed Macrobid 100 mg oral capsule 100 mg=1 cap, PO, BID, X 7 day, # 14 cap, 0 Refill(s) Start Date: 01/12/18 Stop Date: 01/19/18 Status: Ordered NexIUM 20 mg oral delayed release capsule 20 mg=1 cap, PO, Daily, # 30 cap, 0 Refill(s) Start Date: 01/12/18 Status: Ordered Sodium Chloride 0.9% (Bolus) IV 1,000 mL, 1000 ml/hr, Infuse Over: 1 hr, Route: IV, 1,000, Drug form: INJ, ONCE, Priority: STAT, Dosing Weight 98.182 kg, Start date: 01/12/18 19:02:00 CDT, Stop date: 01/12/18 19:02:00 CDT Start Date: 01/12/18 Stop Date: 01/12/18 Status: Completed Results ELECTROLYTES Most recent to 1 oldest [Reference Range]: Sodium Lvl [135-145 144 mEq/L mEq/L] (01/12/18 5:09 PM) Potassium Lvl 3.6 mEq/L [3.5-5.1 mEq/L] (01/12/18 5:09 PM) Chloride Lvl [95-109 106 mEq/L mEq/L] (01/12/18 5:09 PM) CO2 [24-32 mEq/L] 28 mEq/L (01/12/18 5:09 PM) AGAP [10.0-20.0 13.6 mEq/L mEq/L] (01/12/18 5:09 PM) CHEM PANEL Most recent to 1 oldest [Reference Range]: Creatinine Lvl 1.49 mg/dL [0.50-1.40 mg/dL] *HI* (01/12/18 5:09 PM) eGFR 38 mL/min/1.73m2 1 *NA* (01/12/18 5:09 PM) BUN [7-22 mg/dL] 23 mg/dL *HI* (01/12/18 5:09 PM) B/C Ratio [6-25] 15 (01/12/18 5:09 PM) Glucose Lvl [70-99 116 mg/dL mg/dL] *HI* (01/12/18 5:09 PM) Total Protein 8.0 g/dL [6.4-8.4 g/dL] (01/12/18 5:09 PM) Albumin Lvl [3.5-5.0 4.2 g/dL g/dL] (01/12/18 5:09 PM) Globulin [2.7-4.2 3.8 g/dL g/dL] (01/12/18 5:09 PM) A/G Ratio [0.7-1.6] 1.1 (01/12/18 5:09 PM) Calcium Lvl 9.5 mg/dL [8.5-10.5 mg/dL] (01/12/18 5:09 PM) ALT [0-65 unit/L] 67 unit/L *HI* (01/12/18 5:09 PM) AST [0-37 unit/L] 48 unit/L *HI* (01/12/18 5:09 PM) Alk Phos [39-136 101 unit/L unit/L] (01/12/18 5:09 PM) Bili Total [0.2-1.3 0.5 mg/dL mg/dL] (01/12/18 5:09 PM) Lipase Lvl [73-393 101 unit/L unit/L] (01/12/18 5:09 PM) 1Result Comment: The eGFR is calculated using [...] be mul tiplied by the estimated BMI. CARDIAC ENZYMES Most recent to 1 oldest [Reference Range]: Troponin-I <0.02 ng/mL [0.00-0.40 ng/mL] (01/12/18 5:09 PM) URINE CHEM Most recent to 1 oldest [Reference Range]: U Preg [Negative] Negative (01/12/18 5:36 PM) URINE AND STOOL Most recent to 1 oldest [Reference Range]: UA Turbidity [Clear] Slight Cloudy (01/12/18 5:36 PM) UA Color [Yellow] Yellow *NA* (01/12/18 5:36 PM) UA pH [5.0-8.0] 5.5 (01/12/18 5:36 PM) UA Spec Grav >=1.030 [<=1.030] *ABN* (01/12/18 5:36 PM) UA Glucose Negative [Negative] (01/12/18 5:36 PM) UA Blood [Negative] Small *ABN* (01/12/18 5:36 PM) UA Ketones Negative [Negative] *NA* (01/12/18 5:36 PM) UA Protein [Negative 30 mg/dL mg/dL] *ABN* (01/12/18 5:36 PM) UA Urobilinogen 0.2 EU/dL [0.1-1.0 EU/dL] (01/12/18 5:36 PM) UA Bili [Negative] Negative *NA* (01/12/18 5:36 PM) UA Leuk Est Moderate [Negative] *ABN* (01/12/18 5:36 PM) UA Nitrite Negative [Negative] (01/12/18 5:36 PM) UA WBC [0-5 /HPF] 6-10 /HPF *ABN* (01/12/18 5:36 PM) UA RBC [0-2 /HPF] 0-2 /HPF (01/12/18 5:36 PM) UA Bacteria [None Few /HPF Seen /HPF] (01/12/18 5:36 PM) UA Sq Epi [Few /LPF] Moderate /LPF *ABN* (01/12/18 5:36 PM) HEMATOLOGY Most recent to 1 oldest [Reference Range]: WBC [3.7-10.4 K/CMM] 9.2 K/CMM (01/12/18 5:09 PM) RBC [4.20-5.40 4.02 M/CMM M/CMM] *LOW* (01/12/18 5:09 PM) Hgb [12.0-16.0 g/dL] 12.3 g/dL (01/12/18 5:09 PM) Hct [36.0-48.0 %] 36.4 % (01/12/18 5:09 PM) MCV [80.0-98.0 fL] 90.7 fL (01/12/18 5:09 PM) MCH [27.0-31.0 pg] 30.7 pg (01/12/18 5:09 PM) MCHC [32.0-36.0 33.9 g/dL g/dL] (01/12/18 5:09 PM) RDW [11.5-14.5 %] 13.1 % (01/12/18 5:09 PM) MPV [7.4-10.4 fL] 9.3 fL (01/12/18 5:09 PM) Platelet [133-450 356 K/CMM K/CMM] (01/12/18 5:09 PM) Segs [45.0-75.0 %] 67.2 % (01/12/18 5:09 PM) Lymphocytes 25.8 % [20.0-40.0 %] (01/12/18 5:09 PM) Monocytes [2.0-12.0 5.6 % %] (01/12/18 5:09 PM) Eosinophils [0.0-4.0 1.1 % %] (01/12/18 5:09 PM) Basophils [0.0-1.0 0.3 % %] (01/12/18 5:09 PM) Segs-Bands # 6.2 K/CMM [1.5-8.1 K/CMM] (01/12/18 5:09 PM) Lymphocytes # 2.4 K/CMM [1.0-5.5 K/CMM] (01/12/18 5:09 PM) Monocytes # [0.0-0.8 0.5 K/CMM K/CMM] (01/12/18 5:09 PM) Eosinophils # 0.1 K/CMM [0.0-0.5 K/CMM] (01/12/18 5:09 PM) Immunizations No data available for this section [...]
--- OUTSIDE RECORDS SUMMARY | 2018-12-10 10:01 | XMS REPORT | Summary of Care ---
Author Author [facility] Organization [facility] Address Unknown Phone Unavailable Encounter GWEN Salinas(AAYUSH) [id number] Date(s): 10/02/16 - 10/02/[address] [facility] [address] [place] [address]- Discharge Diagnosis: Right ovarian cyst Discharge Diagnosis: Elevated blood pressure Discharge Diagnosis: Abdominal pain, acute, right lower quadrant Discharge Diagnosis: Renovascular hypertension Discharge Diagnosis: Acute pyelonephritis Discharge Disposition: Home or Self Care Attending Physician: Wyatt Kang MD Vital Signs 1 2 3 Most recent to oldest [Reference Range]: 165.1 cm (10/02/16 3:00 AM) Height 97.9 DegF (10/02/16 7:10 AM) 98.3 DegF (10/02/16 3:00 AM) Temperature Oral [96.4-99.1 DegF] 134/67 mmHg (10/02/16 7:49 AM) 135/61 mmHg (10/02/16 7:10 AM) 140/63 mmHg (10/02/16 6:11 AM) Blood Pressure [90-140/60-90 mmHg] 18 BRMIN (10/02/16 7:49 AM) 17 BRMIN (10/02/16 7:10 AM) 16 BRMIN (10/02/16 6:11 AM) Respiratory Rate [14-20 BRMIN] 72 bpm (10/02/16 7:49 AM) 70 bpm (10/02/16 7:10 AM) 68 bpm (10/02/16 6:11 AM) Peripheral Pulse Rate [60-100 bpm] 102.273 kg (10/02/16 3:00 AM) Weight 37.52 m2 (10/02/16 3:00 AM) Body Mass Index Problem List No data available for this section Allergies, Adverse Reactions, Alerts Substance Reaction Severity Status NKDA Active Medications Keflex 500 mg oral capsule 500 mg=1 cap, PO, TID, X 10 day, # 30 cap, 0 Refill(s) Start Date: 10/02/16 Stop Date: 10/12/16 Status: Ordered morphine Sulfate 4 mg, 1 mL, Route: IV, Drug form: SOLN, ONCE, Dosing Weight 102.273, kg, Priorit y: STAT, Start date: 10/02/16 6:59:00 [employer]NACK [employer] MIXER OPERATOR, Stop date: 10/02/16 6:59:00 SNACK [employer] MIXER OPERATOR Notes: (Same as:MORPhine Sulfate) Start Date: 10/02/16 Stop Date: 10/02/16 Status: Completed morphine Sulfate 8 mg, Route: IVP, ONCE, Dosing Weight 102.273, kg, Priority: STAT, Start date: 0 10/02/16 4:02:00 SNACK FO[employer] MIXER OPERATOR, Stop date: 10/02/16 4:02:00 SNACK FO[employer] MIXER OPERATOR Start Date: 10/02/16 Stop Date: 10/02/16 Status: Completed ondansetron 4 mg, Route: IVP, ONCE, Dosing Weight 102.273, kg, Priority: STAT, Start date: 0 10/02/16 4:02:00 SNACK FOOD[employer] MIXER OPERATOR, Stop date: 10/02/16 4:02:00 SNACK FO[employer] MIXER OPERATOR Start Date: 10/02/16 Stop Date: 10/02/16 Status: Completed Rocephin + sodium chloride 0.9% INJ 100 mL 1 gm, Route: IVPB, ONCE, Dosing Weight 102.273, kg, Priority: STAT, Start date: 10/02/16 6:42:00 SNACK [employer] MIXER OPERATOR, Stop date: 10/02/16 6:42:00 SNACK FOOD[employer] MIXER OPERATOR Notes: (Same As: Rocephin).Use with 100 mL NS and infuse over 30 min MEDICA TION WASTE Product Size: 1000 mgProduct Wasted: ___ mg Start Date: 10/02/16 Stop Date: 10/02/16 Status: Completed Saline Flush 0.9% 10 mL, Route: IVP, Drug Form: INJ, Dosing Weight 102.273, kg, PRN, PRN Line Flus h, Start date: 10/02/16 4:02:00 SNACK [employer] MIXER OPERATOR, Duration: 30 day, Stop date: 11/01/16 4:01: 00 SNACK FOODS MIXER OPERATOR Notes: (Same as: BD Posiflush) Start Date: 10/02/16 Stop Date: 10/02/16 Status: Discontinued Sodium Chloride 0.9% (Bolus) IV 1,000 mL, 2,000 ml/hr, Infuse Over: 30 minutes, Route: IV, ONCE, Priority: STAT, Dosing Weight 102.273 kg, Start date: 10/02/16 4:02:00 SNACK FOOD[employer] MIXER OPERATOR, Duration: 1 doses or times, Stop date: 10/02/16 4:02:00 SNACK FOODS MIXER OPERATOR Start Date: 10/02/16 Stop Date: 10/02/16 Status: Completed sodium chloride 0.9% 1000 ml INJ 1,000 mL 1,000 mL, Rate: 125 ml/hr, Infuse over: 8 hr, Route: IV, Dosing Weight 102.273 k g, Total Volume: 1,000, Start date: 10/02/16 4:02:00 SNACK FOODS MIXER OPERATOR, Duration: 30 day, Stop date: 11/01/16 4:01:00 SNACK FOODS MIXER OPERATOR Start Date: 10/02/16 Stop Date: 10/02/16 Status: Discontinued sodium chloride 0.9% INJ 250 mL 250 mL, Rate: White Work Cleaner for use with blood product administration., Dosing Weight 102.273, kg, Route: IV, Total Volume: 250, Priority: Routine, Start Date: 4:02:00 SNACK FOODS MIXER OPERATOR, Duration: 1 day, Stop date: 10/03/16 4:01:00 SNACK FOODS MIXER OPERATOR, Replace Every: 24 hr Start Date: 10/02/16 Stop Date: 10/02/16 Status: Discontinued Zofran 4 mg, 2 mL, Route: IVP, Drug form: INJ, ONCE, Dosing Weight 102.273, kg, Priorit y: STAT, Start date: 10/02/16 6:59:00 SNACK FOODS MIXER OPERATOR, Stop date: 10/02/16 6:59:00 SNACK FOODS MIXER OPERATOR Notes: (Same as: Zofran) MEDICATION WASTE Product Size: 4 mgProduct Was raghavendra: ___ mg Start Date: 10/02/16 Stop Date: 10/02/16 Status: Completed Zofran ODT 8 mg oral tablet, disintegrating 8 mg=1 tab, PO, TID, PRN Nausea and Vomiting, Dissolve tab under tongue, X 4 day , # 30 tab, 0 Refill(s) Start Date: 10/02/16 Stop Date: 10/06/16 Status: Ordered Results BLOOD BANK RESULTS Most recent to 1 oldest [Reference Range]: ABO/Rh O POS *Unknown* (10/02/16 4:18 AM) Antibody Scrn Negative (10/02/16 4:18 AM) ELECTROLYTES Most recent to 1 oldest [Reference Range]: Sodium Lvl [135-145 138 mEq/L mEq/L] (10/02/16 4:18 AM) Potassium Lvl 3.4 mEq/L [3.5-5.1 mEq/L] *LOW* (10/02/16 4:18 AM) Chloride Lvl [95-109 99 mEq/L mEq/L] (10/02/16 4:18 AM) CO2 [24-32 mEq/L] 28 mEq/L (10/02/16 4:18 AM) AGAP [10.0-20.0 14.4 mEq/L mEq/L] (10/02/16 4:18 AM) CHEM PANEL Most recent to 1 oldest [Reference Range]: Creatinine Lvl 0.97 mg/dL [0.50-1.40 mg/dL] (10/02/16 4:18 AM) eGFR 65 mL/min/1.73m2 1 *NA* (10/02/16 4:18 AM) BUN [7-22 mg/dL] 14 mg/dL (10/02/16 4:18 AM) B/C Ratio [6-25] 14 (10/02/16 4:18 AM) Glucose Lvl [70-99 221 mg/dL mg/dL] *HI* (10/02/16 4:18 AM) Total Protein 7.6 g/dL [6.4-8.4 g/dL] (10/02/16 4:18 AM) Albumin Lvl [3.5-5.0 3.5 g/dL g/dL] (10/02/16 4:18 AM) Globulin [2.7-4.2 4.1 g/dL g/dL] (10/02/16 4:18 AM) A/G Ratio [0.7-1.6] 0.9 (10/02/16 4:18 AM) Calcium Lvl 8.8 mg/dL [8.5-10.5 mg/dL] (10/02/16 4:18 AM) ALT [0-65 unit/L] 40 unit/L (10/02/16 4:18 AM) AST [0-37 unit/L] 14 unit/L (10/02/16 4:18 AM) Alk Phos [39-136 128 unit/L unit/L] (10/02/16 4:18 AM) Bili Total [0.2-1.3 0.3 mg/dL mg/dL] (10/02/16 4:18 AM) Amylase Lvl [25-115 26 unit/L unit/L] (10/02/16 4:18 AM) Lipase Lvl [73-393 70 unit/L unit/L] *LOW* (10/02/16:18 AM) 1Result Comment: The eGFR is calculated [...] Most recent to 1 oldest [Reference Range]: Total CK [12-191 75 unit/L unit/L] (10/02/16 4:18 AM) ENDOCRINOLOGY Most recent to 1 oldest [Reference Range]: S Preg [Negative] Negative *NA* (10/02/16 4:18 AM) URINE AND STOOL Most recent to 1 oldest [Reference Range]: UA Turbidity [Clear] Slight *ABN* (10/02/16 4:18 AM) UA Color Ltyellow *NA* (10/02/16 4:18 AM) UA pH [5.0-8.0] 6.0 (10/02/16 4:18 AM) UA Spec Grav 1.020 [<=1.030] (10/02/16 4:18 AM) UA Glucose [Negative 500 mg/dL mg/dL] *ABN* (10/02/16 4:18 AM) UA Blood [Negative] Negative (10/02/16 4:18 AM) UA Ketones [Negative Trace mg/dL mg/dL] *ABN* (10/02/16 4:18 AM) UA Protein [Negative 100 mg/dL mg/dL] *ABN* (10/02/16 4:18 AM) UA Urobilinogen <=1.0 mg/dL [0.1-1.0 mg/dL] *NA* (10/02/16 4:18 AM) UA Bili [Negative] Negative *NA* (10/02/16:18 AM) UA Leuk Est Trace [Negative] *ABN* (10/02/16 4:18 AM) UA Nitrite Negative [Negative] (10/02/16 4:18 AM) UA WBC [0-5 /HPF] 78 /HPF *HI* (10/02/16 4:18 AM) UA RBC [0-2 /HPF] 9 /HPF *HI* (10/02/16 4:18 AM) UA Bacteria [None Occasional /HPF Seen /HPF] *NA* (10/02/16 4:18 AM) UA Sq Epi [Few /LPF] Occasional /LPF *NA* (10/02/16 4:18 AM) HEMATOLOGY Most recent to 1 oldest [Reference Range]: WBC [3.7-10.4 K/CMM] 13.9 K/CMM *HI* (10/02/16 4:18 AM) RBC [4.20-5.40 3.88 M/CMM M/CMM] *LOW* (10/02/16 4:18 AM) Hgb [12.0-16.0 g/dL] 11.1 g/dL *LOW* (10/02/16 4:18 AM) Hct [36.0-48.0 %] 33.2 % *LOW* (10/02/16 4:18 AM) MCV [80.0-98.0 fL] 85.5 fL (10/02/16 4:18 AM) MCH [27.0-31.0 pg] 28.6 pg (10/02/16 4:18 AM) MCHC [32.0-36.0 33.5 g/dL g/dL] (10/02/16 4:18 AM) RDW [11.5-14.5 %] 14.0 % (10/02/16:18 AM) Platelet [133-450 373 K/CMM K/CMM] (10/02/16:18 AM) MPV [7.4-10.4 fL] 9.7 fL (10/02/16:18 AM) Segs [45.0-75.0 %] 72.4 % (10/02/16 4:18 AM) Lymphocytes 19.6 % [20.0-40.0 %] *LOW* (10/02/16:18 AM) Monocytes [2.0-12.0 6.9 % %] (10/02/16 4:18 AM) Eosinophils [0.0-4.0 0.2 % %] (10/02/16 4:18 AM) Basophils [0.0-1.0 0.9 % %] (10/02/16 4:18 AM) Segs-Bands # 10.1 K/CMM [1.5-8.1 K/CMM] *HI* (10/02/16 4:18 AM) Lymphocytes # 2.7 K/CMM [1.0-5.5 K/CMM] (10/02/16 4:18 AM) Monocytes # [0.0-0.8 1.0 K/CMM K/CMM] *HI* (10/02/16 4:18 AM) Basophils # [0.0-0.2 0.1 K/CMM K/CMM] (10/02/16 4:18 AM) PT [12.0-14.7 12.9 seconds seconds] (10/02/16 4:18 AM) INR [0.85-1.17] 0.95 (10/02/16 4:18 AM) Immunizations No data available for this section Procedures No data available for this section Social History Social History Type Response Smoking Status Never smoker; Previous treatment: None; Ready to change: No; Concerns about tobacco use in household: No; Exposure to Tobacco Smoke None; Cigarette Smoking Last 365 Days No; Reg Smoking Cessation Counseling No Assessment and Plan No data available for this section
--- OUTSIDE RECORDS SUMMARY | 2018-12-10 10:02 | XMS REPORT ---
Author Author [facility] Address Unknown Phone Unavailable Care Team Providers Care Counter [place] Name Role Phone JUAN DIEGO ECHOLS Unavailable Unavailable Problems This patient has no known problems. Allergies, Adverse Reactions, Alerts This patient has no known allergies or adverse reactions. Medications This patient has no known medications. Results Test Description Test Time Test Comments Text Results Atomic Results Result Comments URINE CULTURE 2016-10-12 15:06:00 CULTURE (BEAKER) (test gpgl=4535) No growth
--- NOTE | 2018-12-10 11:49 | Diagnostic Imaging Report ---
Exam: Right ankle 3 views History: Pain Comparison: None. Findings: No fracture or malalignment. Joint spaces preserved. No abnormal soft tissue calcification or soft tissue defect. Impression: No acute osseous abnormality Signed by: Dr. Aguila Dominique M.D. on 12/10/2018 11:46 AM
== END 2018-12-10 11:01 | disposition home or self-care (01) ==
LOC: FSED 09:58
DX: M25.571 Pain in right ankle and joints of right foot (principal); M19.071 Primary osteoarthritis, right ankle and foot; H10.11 Acute atopic conjunctivitis, right eye; I10 Essential (primary) hypertension; E11.9 Type 2 diabetes mellitus without complications; E66.9 Obesity, unspecified
CPT/HCPCS: 99283

== ENCOUNTER 2024-06-15 13:38 | Emergency (ER) | payer BC ==
[~2024-06-15] VITALS: Ht 165.1 cm; Wt 100.2 kg
[2024-06-15] MEDS: ACETAMINOPHEN 325 MG TAB PO ONE (15:45)
[2024-06-15] MEDS: KETOROLAC TROMETHAMINE 60 MG/2 ML VIAL IM ONE (16:41)
[2024-06-15 16:50] VITALS: PULSE 58; RESP 16; TEMP 98; O2SAT 97
== END 2024-06-15 16:50 | disposition home or self-care (01) ==
LOC: FSED 14:17
DX: M25.562 Pain in left knee (principal); W18.39XA Other fall on same level, initial encounter; Y93.01 Activity, walking, marching and hiking; Y92.89 Other specified places as the place of occurrence of the external cause; I10 Essential (primary) hypertension; E11.9 Type 2 diabetes mellitus without complications; E78.5 Hyperlipidemia, unspecified; Z95.5 Presence of coronary angioplasty implant and graft
CPT/HCPCS: 73562; 73590; 99283; J1885

== ENCOUNTER → 2024-07-01 | Outpatient (REF) | payer BC | LOC: RAD 09:38 | PROVIDERS: ATTEND Internal Medicine | DX: R05.9 Cough, unspecified (principal) | CPT/HCPCS: 71046 ==

== ENCOUNTER 2024-07-26 00:02 | Emergency (ER) | payer BC ==
[~2024-07-26] VITALS: Ht 165.1 cm; Wt 100.2 kg
[2024-07-26 00:06] VITALS: PULSE 71; RESP 18; TEMP 98.3
[2024-07-26] MEDS ORDERED: FLEET ENEMA133 ML PR (01:44)
[2024-07-26] MEDS ORDERED: MILK OF MA2400 MG/10 PO (02:25)
[2024-07-26 02:43] VITALS: BP 119/62; PULSE 71; RESP 18; TEMP 98.3; O2SAT 99
== END 2024-07-26 02:45 | disposition home or self-care (01) ==
LOC: FSED 00:21
DX: K59.03 Drug induced constipation (principal); I10 Essential (primary) hypertension; E11.9 Type 2 diabetes mellitus without complications; E78.5 Hyperlipidemia, unspecified
CPT/HCPCS: 74176; 99283